=== PATIENT | female | born 1975 | race Caucasian/White ===

== ENCOUNTER → 2017-05-12 | Outpatient (CLI) | payer BC ==
[~2017-05-12] VITALS: Ht 170.2 cm; Wt 81.6 kg
[~2017-05-12] MED LIST: LEVO50TA5 PO; LIDOCAINE 2% INJ 100 MG/5 ML SDV (FOR ANES.) As Ordered ONE; NS 1,000 ML IV ONE; PROPOFOL 200 MG/20 ML VIAL As Ordered ONE
--- NOTE | 2017-05-12 10:22 | ROOR ---
Patient Name: Lashaun Charles Procedure Date: 05/12/2017 10:03 AM Date of : 1975 Age: 41 Room: [facility] Gender: Female Note Status: Finalized Procedure: Upper GI endoscopy Indications: Suspected esophageal reflux Providers: Yash Christiansen Jr, MD Referring MD: Faustino Rios MD Requesting Provider: Medicines: Propofol per Anesthesia Complications: No immediate complications. Procedure: Pre-Anesthesia Assessment: - Prior to the procedure, a History and Physical was performed, and patient medications and allergies were reviewed. The patient is competent. The risks and benefits of the procedure and the sedation options and risks were discussed with the patient. All questions were answered and informed consent was obtained. Patient identification and proposed procedure were verified by the physician and the nurse in the pre-procedure area and in the procedure room. Mental Status Examination: alert and oriented. Airway Examination: normal oropharyngeal airway and neck mobility. Respiratory Examination: clear to auscultation. CV Examination: normal. ASA Grade Assessment: II - A patient with mild systemic disease. After reviewing the risks and benefits, the patient was deemed in satisfactory condition to undergo the procedure. The anesthesia plan was to use moderate sedation / analgesia (conscious sedation). Immediately prior to administration of medications, the patient was re-assessed for adequacy to receive sedatives. The heart rate, respiratory rate, oxygen saturations, blood pressure, adequacy of pulmonary ventilation, and response to care were monitored throughout the procedure. The physical status of the patient was re-assessed after the procedure. The Endoscope was introduced through the mouth, and advanced to the second part of duodenum. The upper GI endoscopy was accomplished without difficulty. The patient tolerated the procedure well. Findings: The upper third of the esophagus, middle third of the esophagus and lower third of the esophagus were normal. LA Grade A (one or more mucosal breaks less than 5 mm, not extending between tops of 2 mucosal folds) esophagitis was found at the gastroesophageal junction. Biopsies were taken with a cold forceps for histology. The cardia, gastric fundus, gastric body, gastric antrum and pylorus were normal. Striped mildly erythematous mucosa was found in the prepyloric region of the stomach. Biopsies were taken with a cold forceps for histology. The duodenal bulb, first portion of the duodenum and second portion of the duodenum were normal. Impression: - Normal upper third of esophagus, middle third of esophagus and lower third of esophagus. - LA Grade A esophagitis. Biopsied. - Normal cardia, gastric fundus, gastric body, antrum and pylorus. - Erythematous mucosa in the prepyloric region of the stomach. Biopsied. - Normal duodenal bulb, first portion of the duodenum and second portion of the duodenum. Recommendation: - Discharge patient to home (ambulatory). - Return to my office in 3 weeks. Yash Christiansen MD Yash Christiansen Jr, MD 05/12/2017 10:22:02 AM This report has been signed electronically. Number of Addenda: 0 Note Initiated On: 05/12/2017 10:03 AM Estimated Blood Loss: Estimated blood loss: none.
--- NOTE | 2017-05-12 10:34 | ROOR ---
Patient Name: Lashaun Charles Procedure Date: 05/12/2017 10:04 AM Date of : 1975 Age: 41 Room: [facility] Gender: Female Note Status: Finalized Procedure: Colonoscopy Indications: Generalized abdominal pain, Rectal bleeding Providers: Yash Christiansen Jr, MD Referring MD: Faustino Rios MD Requesting Provider: Medicines: Propofol per Anesthesia Complications: No immediate complications. Procedure: Pre-Anesthesia Assessment: - Prior to the procedure, a History and Physical was performed, and patient medications and allergies were reviewed. The patient is competent. The risks and benefits of the procedure and the sedation options and risks were discussed with the patient. All questions were answered and informed consent was obtained. Patient identification and proposed procedure were verified by the physician and the nurse in the pre-procedure area and in the procedure room. Mental Status Examination: alert and oriented. Airway Examination: normal oropharyngeal airway and neck mobility. Respiratory Examination: clear to auscultation. CV Examination: normal. ASA Grade Assessment: II - A patient with mild systemic disease. After reviewing the risks and benefits, the patient was deemed in satisfactory condition to undergo the procedure. The anesthesia plan was to use moderate sedation / analgesia (conscious sedation). Immediately prior to administration of medications, the patient was re-assessed for adequacy to receive sedatives. The heart rate, respiratory rate, oxygen saturations, blood pressure, adequacy of pulmonary ventilation, and response to care were monitored throughout the procedure. The physical status of the patient was re-assessed after the procedure. The Colonoscope was introduced through the anus and advanced to the cecum, identified by appendiceal orifice and ileocecal valve. The patient tolerated the procedure well. The quality of the bowel preparation was adequate and good. Findings: The perianal and digital rectal examinations were normal. Pertinent negatives include normal sphincter tone, no palpable rectal lesions and no anal lesion or abnormality was detected. Non-bleeding external and internal hemorrhoids were found during endoscopy. The hemorrhoids were mild. The rectum, recto-sigmoid colon, sigmoid colon, descending colon, transverse colon, ascending colon, cecum and appendiceal orifice appeared normal. Impression: - Non-bleeding external and internal hemorrhoids. - The rectum, recto-sigmoid colon, sigmoid colon, descending colon, transverse colon, ascending colon, cecum and appendiceal orifice are normal. - No specimens collected. Recommendation: - Discharge patient to home (ambulatory). - Repeat colonoscopy for screening purposes. Yash Christiansen MD Yash Christiansen Jr, MD 05/12/2017 10:33:52 AM This report has been signed electronically. Number of Addenda: 0 Note Initiated On: 05/12/2017 10:04 AM Estimated Blood Loss: Estimated blood loss: none.
[2017-05-12 11:09] VITALS: BP 119/63
== END | disposition home or self-care (01) ==
LOC: M OPP 09:17
PROVIDERS: ATTEND Surgery
DX: K62.5 Hemorrhage of anus and rectum (principal); R10.84 Generalized abdominal pain; K64.4 Residual hemorrhoidal skin tags; K64.8 Other hemorrhoids; R10.13 Epigastric pain; R10.30 Lower abdominal pain, unspecified; R14.0 Abdominal distension (gaseous); K21.9 Gastro-esophageal reflux disease without esophagitis; K20.9 Esophagitis, unspecified; K31.89 Other diseases of stomach and duodenum; E03.9 Hypothyroidism, unspecified; Z79.899 Other long term (current) drug therapy

== ENCOUNTER → 2017-05-16 | Outpatient (CLI) | payer BC ==
[~2017-05-16] MED LIST changes: +GASTROGRAFIN SOLUTION 30ML (Q9963) As Ordered ONE; +ISOVUE-370 76% 100ML VIAL (Q9967) As Ordered ONE; -LIDOCAINE 2% INJ 100 MG/5 ML SDV (FOR ANES.) As Ordered ONE; -NS 1,000 ML IV ONE; -PROPOFOL 200 MG/20 ML VIAL As Ordered ONE
--- NOTE | 2017-05-17 03:04 | REP ---
Clinical: Lower abdominal pain. Technique: Axial contrast enhanced images from the lung bases to the pubic symphysis using oral and 100 ml Isovue 370 intravenous contrast material with precontrast images of the abdomen as well as coronal and sagittal re-formations. Findings: Lung bases are clear. Visualized heart and pericardium normal. Liver, spleen, pancreas, bilateral adrenal glands and kidneys are normal. Cholelithiasis noted without CT evidence for acute cholecystitis. The enteric system is without obstruction or acute inflammatory process. Normal terminal ileum and appendix identified in the right lower quadrant. Sigmoid diverticulosis noted without acute diverticulitis. Pelvis demonstrates normal bladder. Myomatous changes to the uterus are suggested and may warrant pelvic ultrasound follow-up. No ascites. No obvious adenopathy. Abdominal aorta and vasculature without aneurysm or dissection. Musculoskeletal structures are intact without focal osseous abnormality. 1 cm fat containing periumbilical hernia noted. Impression: 1. Cholelithiasis without CT evidence for acute cholecystitis. 2. Myomatous changes to the uterus are suggested and may warrant pelvic ultrasound follow-up. 3. 1 cm fat containing periumbilical hernia. 4. Scattered sigmoid diverticula without acute diverticulitis. Signed by Terrence Stone MD 05/17/2017 02:55 A
== END ==
LOC: M RAD 12:25
PROVIDERS: ATTEND Surgery
DX: K80.80 Other cholelithiasis without obstruction (principal); K57.30 Diverticulosis of large intestine without perforation or abscess without bleeding; R10.30 Lower abdominal pain, unspecified; K62.5 Hemorrhage of anus and rectum
CPT/HCPCS: 74178; Q9963; Q9967

== ENCOUNTER 2018-09-08 03:18 | Emergency (ER) | payer BC ==
[2018-09-08 04:10] LABS: BASO % 0.1 % (0.0-1.0); EOS # 0.1 10^3/uL (0.0-0.50); EOS % 0.7 % (0.0-3.0); HEMATOCRIT 39.4 % (36.0-47.0); HEMOGLOBIN 13.3 g/dl (12.0-15.5); IMMATURE GRANULOCYTE % 0.3 % (0-3.0); LYMPH % 14.1 % (24.0-44.0); MEAN CORPUSCULAR HEMOGLOBIN 30.8 pg (27.0-33.0); MEAN CORPUSCULAR HGB CONC 33.8 g/dl (32.0-36.5); MEAN CORPUSCULAR VOLUME 91.2 fl (80.0-96.0); MONO # 0.4 10^3/uL (0.0-0.8); MONO % 5.1 % (0.0-5.0); NEUTROPHILS # 5.8 10^3/uL (1.8-7.7); NEUTROPHILS % 79.7 % (36.0-66.0); PLATELET COUNT, AUTOMATED 199 10^3/uL (150-450); RED BLOOD COUNT 4.32 10^6/uL (4.00-5.40); RED CELL DISTRIBUTION WIDTH 11.9 % (11.5-14.5); WHITE BLOOD COUNT 7.2 10^3/uL (4.0-10.0)
[2018-09-08] MEDS: GI COCKTAIL 50ML BTL(HYOSCYAMINE/MAALOX/LIDOCAINE VISCOUS)(1:3:1) PO (04:10)
[2018-09-08 04:38] LABS: ALBUMIN 3.7 GM/DL (3.2-5.2); ALBUMIN/GLOBULIN RATIO 1.16 (1.00-1.93); ALKALINE PHOSPHATASE 61 U/L (45-117); ALT/SGPT 19 U/L (12-78); ANION GAP 8 MEQ/L (8-16); AST/SGOT 12 U/L (7-37); BILIRUBIN,DIRECT < 0.1 MG/DL (0.0-0.2); BILIRUBIN,TOTAL 0.2 MG/DL (0.2-1.0); BLOOD UREA NITROGEN 10 MG/DL (7-18); CALCIUM LEVEL 8.8 MG/DL (8.5-10.1); CARBON DIOXIDE LEVEL 24 MEQ/L (21-32); CHLORIDE LEVEL 109 MEQ/L (98-107); CREATININE FOR GFR 0.81 MG/DL (0.55-1.30); GLOMERULAR FILTRATION RATE > 60.0 (>58); GLUCOSE, FASTING 118 MG/DL (70-100); LIPASE 181 U/L (73-393); SODIUM LEVEL 141 MEQ/L (136-145); TOTAL PROTEIN 6.9 GM/DL (6.4-8.2)
[2018-09-08] MEDS: PANTOPRAZOLE 40MG INJ (PROTONIX) (C9113) IV (05:17)
[2018-09-08] MEDS: SUCRALFATE 1 GM TAB PO (05:17)
== END 2018-09-08 06:09 | disposition home or self-care (01) ==
LOC: M ED 03:18
DX: R10.13 Epigastric pain (principal); R11.0 Nausea; K27.9 Peptic ulcer, site unspecified, unspecified as acute or chronic, without hemorrhage or perforation; Z79.899 Other long term (current) drug therapy
CPT/HCPCS: C9113

== ENCOUNTER → 2018-09-21 | Outpatient (REF) | payer BC ==
[2018-09-21 14:02] LABS: ESTIMATED AVERAGE GLUCOSE 105 MG/DL (60-110); HEMOGLOBIN A1c 5.3 %
[2018-09-21 14:06] LABS: ERYTHROCYTE SEDIMENTATION RATE 6 mm/hr (0-20)
[2018-09-21 14:08] LABS: BASO % 0.7 % (0.0-1.0); EOS # 0.1 10^3/uL (0.0-0.50); EOS % 2.4 % (0.0-3.0); HEMOGLOBIN 13.7 g/dl (12.0-15.5); IMMATURE GRANULOCYTE % 0.2 % (0-3.0); LYMPH # 1.1 10^3/uL (1.5-4.5); LYMPH % 24.3 % (24.0-44.0); MEAN CORPUSCULAR HEMOGLOBIN 30.7 pg (27.0-33.0); MEAN CORPUSCULAR HGB CONC 33.4 g/dl (32.0-36.5); MEAN CORPUSCULAR VOLUME 91.9 fl (80.0-96.0); MONO # 0.4 10^3/uL (0.0-0.8); MONO % 7.8 % (0.0-5.0); NEUTROPHILS # 2.9 10^3/uL (1.8-7.7); NEUTROPHILS % 64.6 % (36.0-66.0); PLATELET COUNT, AUTOMATED 189 10^3/uL (150-450); RED BLOOD COUNT 4.46 10^6/uL (4.00-5.40); RED CELL DISTRIBUTION WIDTH 11.9 % (11.5-14.5); WHITE BLOOD COUNT 4.5 10^3/uL (4.0-10.0)
[2018-09-21 14:15] LABS: ALBUMIN 3.9 GM/DL (3.2-5.2); ALBUMIN/GLOBULIN RATIO 1.11 (1.00-1.93); ALKALINE PHOSPHATASE 65 U/L (45-117); ALT/SGPT 23 U/L (12-78); ANION GAP 8 MEQ/L (8-16); AST/SGOT 18 U/L (7-37); BILIRUBIN,TOTAL 0.4 MG/DL (0.2-1.0); BLOOD UREA NITROGEN 13 MG/DL (7-18); CALCIUM LEVEL 8.6 MG/DL (8.5-10.1); CARBON DIOXIDE LEVEL 27 MEQ/L (21-32); CHLORIDE LEVEL 105 MEQ/L (98-107); CREATININE FOR GFR 0.84 MG/DL (0.55-1.30); FOLATE 13.2 NG/ML; FREE T4 1.06 NG/DL (0.76-1.46); GLOMERULAR FILTRATION RATE > 60.0 (>58); GLUCOSE, FASTING 90 MG/DL (70-100); POTASSIUM SERUM 3.9 MEQ/L (3.5-5.1); RHEUMATOID FACTOR QUANT < 10.0 IU/ML (<15.0); SODIUM LEVEL 140 MEQ/L (136-145); TOTAL PROTEIN 7.4 GM/DL (6.4-8.2); VITAMIN B12 LEVEL 577 PG/ML
[2018-09-28 10:16] LABS: ANTINUCLEAR ANTIBODIES DIRECT Negative (Negative); VITAMIN B1 LEVEL WHOLE BLOOD 118.5 nmol/L (66.5-200.0); VITAMIN B6,PYRIDOXAL PHOSPHATE 9.6 ug/L (2.0-32.8); VITAMIN E(ALPHA TOCOPHEROL) 15.8 mg/L (7.0-25.1); VITAMIN E(GAMMA TOCOPHEROL) 1.8 mg/L (0.5-5.5)
== END ==
LOC: M LABNEURO 08:53
DX: E11.9 Type 2 diabetes mellitus without complications (principal); E07.9 Disorder of thyroid, unspecified; Z86.73 Personal history of transient ischemic attack (TIA), and cerebral infarction without residual deficits
CPT/HCPCS: 82746

== ENCOUNTER → 2019-03-08 | Outpatient (REF) | payer BC ==
[~2019-03-08] MED LIST changes: +CARA1TAB6 PO; -GASTROGRAFIN SOLUTION 30ML (Q9963) As Ordered ONE; -ISOVUE-370 76% 100ML VIAL (Q9967) As Ordered ONE; +OMEP40CA2; +RANI1TAB6 PO
[2019-03-09 15:46] LABS: AMYLASE 53 U/L (25-115); LIPASE 141 U/L (73-393)
== END ==
LOC: M LAB REF 15:26
PROVIDERS: ATTEND Family Medicine
DX: R10.13 Epigastric pain (principal)

== ENCOUNTER → 2019-09-07 | Outpatient (REF) | payer BC ==
[~2019-09-07] MED LIST changes: -OMEP40CA2; +OMEP40CA97; +RANI-356 PO; -RANI1TAB6 PO
== END ==
LOC: M LAB REF 10:51
PROVIDERS: ATTEND Nurse Practitioner Family
DX: R30.0 Dysuria (principal)

== ENCOUNTER → 2020-06-18 | Outpatient (REF) | payer BC ==
[~2020-06-18] MED LIST changes: -OMEP40CA97; +OMEP40CA97 PO; -RANI-356 PO; +RANI-397 PO; +TROS60CA2 PO
[2020-06-18 18:16] LABS: APPEARANCE, URINE CLEAR (CLEAR); BACTERIA, URINE AUTO NEGATIVE (NEGATIVE); BILIRUBIN, URINE AUTO NEGATIVE (NEGATIVE); BLOOD, URINE BLOOD 1+ (NEGATIVE); COLOR, URINE YELLOW (YELLOW); GLUCOSE, URINE (UA) AUTO NEGATIVE (NEGATIVE); KETONE, URINE AUTO NEGATIVE (NEGATIVE); LEUKOCYTE ESTERASE, URINE AUTO NEGATIVE (NEGATIVE); NITRITE, URINE AUTO NEGATIVE (NEGATIVE); PROTEIN, URINE AUTO NEGATIVE (NEGATIVE); RBC, URINE AUTO 0 /HPF (0-3); SPECIFIC GRAVITY URINE AUTO 1.011 (1.002-1.035); SQUAMOUS EPITHELIAL CELL UR AU 1 /HPF (0-6); UROBILINOGEN, URINE AUTO 0.2 mg/dL (0.0-2.0); WBC, URINE AUTO 0 /HPF (0-3)
== END ==
LOC: M LAB REF 13:23
PROVIDERS: ATTEND Obstetrics & Gynecology
DX: N39.46 Mixed incontinence (principal)

== ENCOUNTER → 2020-07-10 | Outpatient (REF) | payer BC ==
[2020-07-10 19:53] LABS: CA 125 27.4 U/ML (<30.2); CA19-9 TUMOR MARKER,CARBOHYDRA 6.8 U/ML (<35.0)
== END ==
LOC: M LAB REF 17:07
PROVIDERS: ATTEND Family Medicine
DX: D39.11 Neoplasm of uncertain behavior of right ovary (principal)

== ENCOUNTER → 2020-08-02 | Outpatient (CLI) | payer BC | LOC: M LABSMTC 09:39 | PROVIDERS: ATTEND Anesthesiology | DX: Z01.812 Encounter for preprocedural laboratory examination (principal); Z20.828 Contact with and (suspected) exposure to other viral communicable diseases | CPT/HCPCS: C9803; U0003 ==

== ENCOUNTER 2020-08-07 08:19 | Day surgery (SDC) | payer BC ==
[2020-08-07] VITALS (7 sets, daily range): BP systolic 120–138; BP diastolic 67–78
[~2020-08-07] VITALS: Ht 170.2 cm; Wt 89.8 kg
[~2020-08-07 08:19] MED LIST changes: +LR 1,000 ML IV ONE; +ceFAZolin SOD 2 GM in IV 1 EA IV ONE
[2020-08-07] MEDS ORDERED: ROCURONIUM BROMIDE 50 MG/5 ML VIAL As Ordered ONE ×2 (08:40→11:46)
[2020-08-07] MEDS ORDERED: LIDOCAINE 2% 100MG/5ML SDV (FOR ANES.) As Ordered ONE (08:40)
[2020-08-07] MEDS ORDERED: propofoL 200 MG/20 ML VIAL As Ordered ONE (08:40)
[2020-08-07] MEDS ORDERED: fentaNYL 250 MCG/5 ML INJECTION (J3010) As Ordered ONE (08:40)
[2020-08-07] MEDS ORDERED: MIDAZOLAM INJ 2MG/2ML VIAL (J2250 PER 1MG) As Ordered ONE (08:40)
[2020-08-07 09:24] LABS: HEMATOCRIT 45.4 % (36.0-47.0); HEMOGLOBIN 14.7 g/dl (12.0-15.5); MEAN CORPUSCULAR HEMOGLOBIN 29.9 pg (27.0-33.0); MEAN CORPUSCULAR HGB CONC 32.4 g/dl (32.0-36.5); MEAN CORPUSCULAR VOLUME 92.3 fl (80.0-96.0); PLATELET COUNT, AUTOMATED 215 10^3/uL (150-450); RED BLOOD COUNT 4.92 10^6/uL (4.00-5.40); WHITE BLOOD COUNT 6.5 10^3/uL (4.0-10.0)
[2020-08-07] MEDS ORDERED: SCOPOLAMINE 1MG TRANSDERMAL PATCH TOP ONE (10:00)
[2020-08-07] MEDS ORDERED: LACRILUBE (AKWA TEARS) OPHTH OINT 3.5 GM As Ordered ONE (11:13)
[2020-08-07] MEDS ORDERED: dexameTHASONE 4 MG/ML 1ML VIAL (J1100 PER 1MG) As Ordered ONE (11:39)
[2020-08-07] MEDS ORDERED: ONDANSETRON 4MG/2ML VIAL As Ordered ONE (11:39)
[2020-08-07] MEDS ORDERED: METOCLOPRAMIDE INJ 10MG/2ML VIAL (J2765 PER 1) As Ordered ONE (11:39)
[2020-08-07] MEDS ORDERED: DESFLURANE 240 ML INHALANT As Ordered ONE (11:56)
[2020-08-07] MEDS ORDERED: SUGAMMADEX SODIUM 500 MG/5 ML VIAL (BRIDION) As Ordered ONE (12:01)
[2020-08-07] MEDS ORDERED: HYDROmorphone HCL 2 MG/ML 1ML VIAL (J1170) As Ordered ONE (12:22)
[2020-08-07] MEDS ORDERED: ACETAMINOPHEN 1000MG 100ML IV BTL (OFIRMEV) (J0131 PER 10MG) As Ordered ONE (12:35)
[2020-08-07] MEDS ORDERED: MORPHINE 1MG/ML IN 0.9% NACL 100ML IV BAG As Ordered ONE (13:58)
[2020-08-07] MEDS ORDERED: MEPERIDINE INJ 25 MG/ML VIAL (J2175) IV PRN (14:00)
[2020-08-07] MEDS ORDERED: LR 1,000 ML IV SCH (14:00)
[2020-08-07] MEDS ORDERED: ONDANSETRON 4MG/2ML VIAL IV PRN (14:00)
[2020-08-07] MEDS ORDERED: METOCLOPRAMIDE INJ 10MG/2ML VIAL (J2765 PER 1) IV PRN (14:00)
[2020-08-07] MEDS: oxyCODONE 5MG TAB PO PRN ×2 (14:32→15:15)
[2020-08-07] MEDS: fentaNYL 100 MCG/2 ML INJECTION (J3010) IV PRN ×4 (14:45→15:00)
[2020-08-07] MEDS ORDERED: MORPHINE 1MG/ML IN 0.9% NACL 100ML IV BAG IV PRN (15:00)
[2020-08-07] MEDS ORDERED: NALBUPHINE HCL 10 MG/ML AMP (J2300) IV PRN (15:00)
[2020-08-07] MEDS ORDERED: diphenhydrAMINE 50MG/ML VIAL (J1200) IV PRN (15:00)
[2020-08-07] MEDS ORDERED: IBUPROFEN 600MG TAB PO PRN (15:00)
[2020-08-07] MEDS ORDERED: NS 1,000 ML IV SCH (15:00)
[2020-08-07] MEDS ORDERED: EPIDURAL/PCA KEYS XX PRN (15:00)
[2020-08-07] MEDS ORDERED: NALOXONE INJ 0.4MG/1ML VIAL (J2310 PER 1MG) IV PRN (15:00)
[2020-08-07] MEDS ORDERED: oxyCODONE 5MG TAB As Ordered ONE (15:14)
[2020-08-07 18:01] LABS: HEMATOCRIT 36.8 % (36.0-47.0)
[2020-08-07 18:05] LABS: HEMOGLOBIN 12.5 g/dl (12.0-15.5)
[2020-08-08 02:00] VITALS: BP 114/62
[2020-08-08 06:00] VITALS: BP 118/77
[2020-08-08] MEDS ORDERED: NORCO, ANEXSIA 5/325MG TABLET (HYDROcodone/ACETAMINOPHEN) PO PRN (06:00)
[2020-08-08 06:13] LABS: HEMATOCRIT 32.9 % (36.0-47.0); HEMOGLOBIN 10.7 g/dl (12.0-15.5); MEAN CORPUSCULAR HEMOGLOBIN 30.4 pg (27.0-33.0); MEAN CORPUSCULAR HGB CONC 32.5 g/dl (32.0-36.5); MEAN CORPUSCULAR VOLUME 93.5 fl (80.0-96.0); PLATELET COUNT, AUTOMATED 183 10^3/uL (150-450); RED BLOOD COUNT 3.52 10^6/uL (4.00-5.40); WHITE BLOOD COUNT 10.5 10^3/uL (4.0-10.0)
--- NOTE | 2020-08-08 07:05 | RO ---
DATE OF OPERATION: 08/07/2020 PREOPERATIVE DIAGNOSIS/INDICATION FOR SURGERY: Pain and large fibroid, primarily one dominant fibroid. PROCEDURE: * Diagnostic laparoscopy. * Open total abdominal hysterectomy with bilateral salpingo-oophorectomy. SURGEON: Kalee Butcher MD BAGGAGE CHECKER: Bhavana Roman ANESTHESIA: General endotracheal anesthesia. BRIEF DESCRIPTION OF PROCEDURE AND FINDINGS: Lashaun was brought to the operating room where sufficient general endotracheal anesthesia was induced. She was prepped, draped, and positioned in the usual sterile fashion. She had already been told in the office that her fibroids were fairly immobile and there was a higher risk of not being able to do it laparoscopically, but we felt it was worth at least looking. So, the uterine manipulator designed for the robot was placed and the Jade with the ability to back fill was placed. We then turned our attention to the umbilicus. A transverse semilunar incision was made at the umbilicus. Sharp and blunt dissection continued through the subcutaneous tissues to the level of the rectus fascia, which was transversely incised, secured with 0-Vicryl retention sutures, and the Ravindra cannula placed into the peritoneal cavity under direct visualization in open laparoscopic technique. CO2 insufflation was then begun, and after adequate CO2 insufflation, the peritoneal cavity was visualized. With adequate insufflation, we were able to visualize the peritoneum well. We put the patient in the full Trendelenburg that we would usual use for the robot and tried to manipulate the uterus to get visualization. As noted in the operative photos, she had a single dominant, more than 11 cm wide, fibroid which was firmly compressing the bladder and there was no access to the bladder. We could see a small, essentially normal sized uterus with this item coming off of the lower uterine segment, distorting the bladder anteriorly, and eliminating all access to the uterine blood supply. Without removing this fibroid, and there was of course no morcellator or such available, nor would I have wanted one, there really was no means robotically to control the blood supply at a safe distance from the bowel which was compressed up in the tiny little amount of space left from this large fibroid. Of course, there was no access to get the bladder out of the way. We did manipulate the uterus somewhat and we were able to see that there just was not access to the appropriate pedicles. It was not an issue of releasing the rounds and then having mobility from this solid, just immobile lesion. Given that there was no access to the blood supply without removal, the decision was made to go ahead and convert. Given that the fibroid was anterior and was solid and the uterus was there behind it, I felt that we could probably do an open myomectomy and then get the blood supply. So, I decided to go ahead and make a Pfannenstiel incision despite the large size of the uterus, because I felt that we could get enough control once we had the fibroid out of the way and it really was primarily the one. So, we stopped the CO2 insufflation, leveled the patient out, and made a transverse Pfannenstiel incision with sharp and blunt dissection through the subcutaneous tissues to the level of the rectus fascia, which was transversely incised. The muscle was in the midline. The peritoneum was entered with care taken to go above the bladder, which was of course pushed up out of the pelvis by this large, large fibroid. We then went ahead and packed the bowel up and used a single- toothed tenaculum to bring the fibroid up to the wound. We could not bring it out of the wound since it was larger than the wound we made, but we were able to then, under closed conditions at the wound, take a portion of that fibroid and split it so we could deliver that, and then rotate it and bring up the other portion until a myomectomy could be accomplished. We then were able to bring the uterus up and carefully clamp the broad ligaments bilaterally. We did have some lower uterine segment bleeding, but we had cut off the peritoneum and the visceral peritoneum as well so that we could displace the bladder inferiorly. Once the fibroid was off of the lower uterine segment, there was quite a bit of distortion of the peritoneum itself, but there did not appear to be bladder injury. We were able to back fill and confirm that. We went ahead and then isolated the rounds, clamped, transected, and ligated them. We isolated the infundibulopelvic ligaments, clamped, transected, and ligated them. Then, we carefully dissected along the lateral aspect of the uterus until we could clamp, transect, and ligate the uterine vasculature until the level of the cervix was reached. We then circumferentially made the colpotomy and delivered the uterus, and of course, the myomectomy had already been accomplished. In total, the weight was 820 grams. The uterus itself was only about 104 without that large, large fibroid, and of course we did not have these weights at this point. We closed the cuff and back filled the bladder again, confirmed absence of injury. We had a good urine output despite the initial blood loss. We had good hemostasis. I did have that redundant peritoneum on the left side. We went ahead and put some Gelfoam there on the left lower anterior after irrigating. Prior to getting control of that blood supply, the total blood loss for the case was about 850, but we did irrigate and have good confirmation of good hemostasis at the end. Of course, we reapproximated the muscle and peritoneal layers in the midline with just interrupted stitches of 0-Vicryl. We then closed the fascia with a running stitch of 0-Vicryl. We closed the skin at the Pfannenstiel incision with 3-0 Vicryl in a subcuticular stitch with Steri-Strips and a dry sterile dressing placed. We closed the fascia wound at the umbilicus with 0- Vicryl retention sutures and then again did a 3-0 Vicryl subcuticular stitch at the umbilicus as well with a dry sterile dressing to place there. Of course, the procedure was then ended. Jade was left in place at the end of the case. ESTIMATED BLOOD LOSS: 850. FLUID REPLACEMENT: Crystalloid. COMPLICATIONS: As noted, the patient had a decision for open, but she was consented for that pending the findings under anesthesia, so no complications. CONDITION AND DISPOSITION: Lashaun tolerated the procedure well and was recovering in the recovery room in good condition. JESSI
[2020-08-08 09:15] LABS: HEMATOCRIT 36.1 % (36.0-47.0); HEMOGLOBIN 11.9 g/dl (12.0-15.5)
[2020-08-08 10:00] VITALS: BP 107/66
[2020-08-08] MEDS ORDERED: LR 1,000 ML IV SCH (15:00)
== END 2020-08-08 11:31 | disposition home or self-care (01) ==
LOC: M SDC 08:19 → M MSPAV 15:29 → M SDC 08-08 11:31
PROVIDERS: ATTEND Obstetrics & Gynecology
DX: R10.2 Pelvic and perineal pain (principal); D25.9 Leiomyoma of uterus, unspecified; N93.9 Abnormal uterine and vaginal bleeding, unspecified; Z53.31 Laparoscopic surgical procedure converted to open procedure
CPT/HCPCS: 36415; 49320; 58150; 81025; 85014; 85018; 85027; 86850; 86900; 86901; 88307; 96361; 96374; J0131; J0690; J1100; J1170; J1200; J2250; J2405; J2765; J3010

== ENCOUNTER → 2020-09-16 | Outpatient (CLI) | payer BC ==
[~2020-09-16] MED LIST changes: -LR 1,000 ML IV ONE; -ceFAZolin SOD 2 GM in IV 1 EA IV ONE
--- NOTE | 2020-09-16 11:09 | REP ---
INDICATION: R92.8 ABN LEFT BREAST MAMMO/CK CLIP PLACEMENT. Patient is status post ultrasound-guided needle biopsy for a small hypoechoic 3 mm target in the left breast at 11 o'clock. COMPARISON: Comparison sonography July 16, 2020. Comparison mammography July 16, 2020. TECHNIQUE: Craniocaudal and true mediolateral mammographic views. FINDINGS: A needle biopsy marker clip is seen in the superior left breast just medial to the plane of the nipple consistent with the 11 o'clock position. No hematoma is seen. Marker clip is in the middle 3rd. There was no mammographic target. IMPRESSION: Marker clip is visible in position superiorly and medially on the left.. This mammogram was interpreted with the aid of an FDA-approved computer-aided detection system. RECOMMENDATION: Follow-up treatment according to needle biopsy histologic results. <Electronically signed by Cristopher Aldridge > 09/16/20 1105
[2020-09-16 12:42] VITALS: BP 130/78
--- NOTE | 2020-09-16 14:22 | REP ---
INDICATION: R92.8 ABN LEFT BREAST-US GUIDED BX. COMPARISON: None. TECHNIQUE: The procedure was performed by KAUSHIK Gilman, under the direct supervision of Dr. Aldridge. The risks and benefits of the procedure were explained to the patient and an informed consent was obtained both verbally and written. Directly prior to the start of the procedure a formal time-out was completed in the procedure room. FINDINGS: Using ultrasound guidance the left breast mass was localized. The skin was prepped and draped in a sterile fashion. Eleven mL of buffered lidocaine was used as a local anesthetic. Using ultrasound guidance a 14 gauge Bard Marquee coaxial needle biopsy system was inserted and advanced into the left breast mass. Six core biopsy specimens were obtained and sent to pathology for further analysis. A marker clip was placed at the biopsy site. The patient tolerated the procedure well and there were no immediate complications. After the appropriate amount of monitored convalescence the patient was discharged from the department. IMPRESSION: 1. Ultrasound-guided left breast biopsy with micro clip placement. <Electronically signed by Citlali Randall > 09/16/20 1331 <Electronically signed by Cristopher Aldridge > 09/16/20 [id number]
== END ==
LOC: M WHCPRO 08:42
PROVIDERS: ATTEND Surgery
DX: N60.12 Diffuse cystic mastopathy of left breast (principal)

== ENCOUNTER → 2020-10-15 | Outpatient (REF) | payer BC ==
[2020-10-15 12:59] LABS: HEPATITIS A ANTIBODY IGM NEGATIVE (NEGATIVE); HEPATITIS B CORE ANTIBODY IGM NEGATIVE (NEGATIVE); HEPATITIS B SURFACE ANTIGEN NEGATIVE (NEGATIVE); HEPATITIS C VIRUS ABY INDEX 0.2 INDEX (<0.8)
== END ==
LOC: M LAB REF 11:14
PROVIDERS: ATTEND Family Medicine
DX: R94.5 Abnormal results of liver function studies (principal)

== ENCOUNTER → 2021-02-06 | Outpatient (CLI) | payer BC ==
--- NOTE | 2021-02-06 09:41 | REP ---
INDICATION: R92.8 6 MO F/U POST BENIGN STEREO BX,ASSESS STABILITY; R92.8 6 MO F/U,POST BENIGN STEREO BX,ASSESS STABILITY. COMPARISON: Comparison mammography July 16, 2020 and September 16, 2020. Comparison sonography July 16, 2020. TECHNIQUE: Craniocaudal, mediolateral, and mediolateral oblique mammographic views of the left breast are obtained with 3D tomography. Repeat targeted left breast sonography is carried out. This mammogram was interpreted with the aid of an FDA-approved computer-aided detection system. FINDINGS: Scattered fibroglandular elements are again noted. A HydroMARK needle biopsy marker clip device is noted in place in the left breast superiorly and medially at the site where prior mammography showed a nodular manjula density. The nodular manjula density is not seen. Only the HydroMARK device density is observed. No manjula density, spiculation, or microcalcification is seen. No mammographically suspicious finding. The Volpara volumetric breast density pattern is b. Targeted ultrasound: Targeted left breast sonography is carried out. Fibroglandular background elements are seen. The in the 11 o'clock position, 4 cm from the nipple at the previous biopsy site, the HydroMARK biopsy clip device is visible as expected. Some fluid is retained in the device surround the echogenic clip as is commonly seen with HydroMARK device. No nodule is seen . The previously noted hypoechoic lesion is no longer visible. IMPRESSION: BIRADS/ACR category 2 benign left breast mammographic and sonographic findings. This patient's Tyrer-Cuzick lifetime breast cancer risk assessment score is 11.4%. RECOMMENDATION: Annual screening bilateral mammography can be resumed.. The patient letter being requested is M2. <Electronically signed by Cristopher Aldridge > 02/06/21 [id number]
== END ==
LOC: M WHC 07:50
PROVIDERS: ATTEND Surgery
DX: R92.8 Other abnormal and inconclusive findings on diagnostic imaging of breast (principal)

== ENCOUNTER → 2021-06-17 | Outpatient (CLI) | payer BC ==
[~2021-06-17] MED LIST changes: +OMEP40CA4 PO; -OMEP40CA97 PO
[2021-06-17 18:08] LABS: BASO % 0.7 % (0.0-1.0); EOS # 0.1 10^3/uL (0.0-0.5); EOS % 1.3 % (0.0-3.0); HEMATOCRIT 41.2 % (36.0-47.0); HEMOGLOBIN 13.5 g/dl (12.0-15.5); LYMPH # 1.4 10^3/uL (1.5-5.0); LYMPH % 24.8 % (24.0-44.0); MEAN CORPUSCULAR HEMOGLOBIN 30.8 pg (27.0-33.0); MEAN CORPUSCULAR HGB CONC 32.8 g/dl (32.0-36.5); MEAN CORPUSCULAR VOLUME 93.8 fl (80.0-96.0); MONO # 0.5 10^3/uL (0.0-0.8); MONO % 8.5 % (2.0-8.0); NEUTROPHILS # 3.6 10^3/uL (1.5-8.5); NEUTROPHILS % 64.2 % (36.0-66.0); PLATELET COUNT, AUTOMATED 202 10^3/uL (150-450); RED BLOOD COUNT 4.39 10^6/uL (4.00-5.40); WHITE BLOOD COUNT 5.5 10^3/uL (4.0-10.0)
[2021-06-17 18:26] LABS: ALBUMIN 4.4 GM/DL (3.2-5.2); ALT/SGPT 182 U/L (12-78); AMYLASE 50 U/L (25-115); BILIRUBIN,TOTAL 0.4 MG/DL (0.2-1.0); BLOOD UREA NITROGEN 14 MG/DL (7-18); C REACTIVE PROTEIN QUANTITATIV 0.54 MG/DL (0.00-0.30); CALCIUM LEVEL 10.1 MG/DL (8.5-10.1); CARBON DIOXIDE LEVEL 31 MEQ/L (21-32); CHLORIDE LEVEL 106 MEQ/L (98-107); CHOLESTEROL LEVEL 294 MG/DL (<200); GLOMERULAR FILTRATION RATE > 60.0 (>58); GLUCOSE, FASTING 91 MG/DL (70-100); HDL CHOLESTEROL 49 MG/DL (>40); LDL CHOLESTEROL 219 MG/DL (<100); NON-HDL-C 245 MG/DL; POTASSIUM SERUM 4.2 MEQ/L (3.5-5.1); SODIUM LEVEL 139 MEQ/L (136-145); TOTAL PROTEIN 7.9 GM/DL (6.4-8.2); TRIGLYCERIDES LEVEL 128 MG/DL (<150)
== END ==
LOC: M LAB 16:59
PROVIDERS: ATTEND Family Medicine
DX: R10.9 Unspecified abdominal pain (principal)

== ENCOUNTER → 2021-06-19 | Outpatient (CLI) | payer BC ==
[~2021-06-19] MED LIST changes: +GASTROGRAFIN SOLUTION 30ML (Q9963) As Ordered ONE; +ISOVUE-370 76% 100ML VIAL As Ordered ONE
--- NOTE | 2021-06-19 12:40 | REP ---
INDICATION: ABD PAIN, INCREASED LFT. COMPARISON: Comparison CT study is from May 16, 2017. TECHNIQUE: 100 mL of Isovue 370 is administered intravenously and helical scanning is acquired. 3 mm axial images re-formatted. Coronal and sagittal MPR images are generated. Oral contrast was also administered. FINDINGS: Preliminary digital non linear editor radiograph shows a large calcified gallstone in the right upper quadrant of the abdomen. The bowel gas pattern is unremarkable. Axial images at lung window settings demonstrate that the lung bases are clear. There is no evidence of pleural effusion or upper abdominal ascites. There is an accessory splenule in the left upper quadrant unchanged. There is profound diffuse fatty infiltration of the liver visible today. Subjectively, the liver is enlarged. Vertical span in the midclavicular line is borderline at 16.6 cm. There is a hypervascular nodule in the left lobe of the liver measuring 14 by 18 mm in size. This is visible in retrospect and is felt to be unchanged when compared with the 2017 prior study and is consistent with a small benign hemangioma. No other focal liver lesion is seen. No biliary ductal dilation is observed. There is a calcified 2.6 cm gallstone in the gallbladder. The gallbladder is slightly collapsed otherwise. No pancreatic abnormality is observed. Normal adrenal glands are seen. The kidneys enhance symmetrically and are morphologically intact bilaterally. No retroperitoneal mass or adenopathy is seen. Small and large intestinal bowel loops are normal in the abdomen and pelvis. A normal appendix is seen in the right lower quadrant. In the interval since the last CT study, the uterus has been surgically removed. Urinary bladder is unremarkable. No adnexal mass or pelvic adenopathy is seen. No abdominal wall defect or bony destructive lesion. IMPRESSION: Marked diffuse fatty infiltration of the liver mild hepatomegaly. Cholelithiasis. Small stable hypervascular liver nodule consistent with hemangioma. <Electronically signed by Cristopher Aldridge > 06/19/21 [id number]
== END ==
LOC: M RAD 10:45
PROVIDERS: ATTEND Family Medicine
DX: R10.9 Unspecified abdominal pain (principal)

== ENCOUNTER → 2021-08-21 | Outpatient (REF) | payer BC ==
[~2021-08-21] MED LIST changes: -GASTROGRAFIN SOLUTION 30ML (Q9963) As Ordered ONE; -ISOVUE-370 76% 100ML VIAL As Ordered ONE
== END ==
LOC: M LAB REF 13:48
PROVIDERS: ATTEND Family Medicine
DX: R74.01 Elevation of levels of liver transaminase levels (principal)

== ENCOUNTER → 2021-08-26 | Outpatient (CLI) | payer BC ==
--- NOTE | 2021-08-26 09:19 | REPMRS ---
Patient History The patient states she had a clinical breast exam in June 2021. Patient is postmenopausal. Family history of breast cancer at age 57 in maternal grandmother. Benign US guided breast biopsy. of the left breast, September 16, 2020. Taking estrogen for 5 months. Tomosynthesis is performed. Volpara breast density is a. [facility] lifetime risk of breast cancer 11.4%. Patient states no breast complaints today. Patient has signed MRS History Sheet. Digital Woman Screen Mammo: August 26, 2021 - Exam #: [id number] Bilateral CC and MLO view(s) were taken. Technologist: Monica Williamson, Technologist Prior study comparison: February 06, 2021, left breast diagnostic unilateral mammo performed at [facility]. September 16, 2020, left breast diagnostic unilateral mammo performed at [facility]. FINDINGS: There are scattered fibroglandular densities. There is a fairly symmetric fibroglandular pattern in both breasts. There has been no interval development of masses, areas of architectural distortion or clusters of microcalcifications typical of malignancy. A smoothly marginated right retroareolar nodule remains stable. A biopsy clip is seen in the upper inner left breast from a prior negative biopsy. Assessment: BI-RADS/ACR category 2 mammogram. Benign Findings. Recommendation Routine screening mammogram of both breasts in 1 year (for women over age 40). This mammogram was interpreted with the aid of an FDA-approved computer-aided dectection system. Electronically Signed By: Jayson Jung MD 08/26/21 0919
== END ==
LOC: M WHC 07:00
PROVIDERS: ATTEND Obstetrics & Gynecology
DX: Z12.31 Encounter for screening mammogram for malignant neoplasm of breast (principal)

== ENCOUNTER → 2021-12-16 | Outpatient (CLI) | payer BC, OTHER ==
[~2021-12-16] MED LIST changes: +PARO12.56 PO
== END ==
LOC: M LABSMTC 10:54
PROVIDERS: ATTEND Anesthesiology
DX: Z01.818 Encounter for other preprocedural examination (principal); Z11.52 Encounter for screening for COVID-19

== ENCOUNTER → 2022-01-02 | Outpatient (CLI) | payer OTHER | LOC: M LABSMTC 10:37 | PROVIDERS: ATTEND Anesthesiology | DX: Z01.818 Encounter for other preprocedural examination (principal); Z11.52 Encounter for screening for COVID-19 ==

== ENCOUNTER 2022-01-07 11:38 | Day surgery (SDC) | payer OTHER ==
[~2022-01-07] VITALS: Ht 170.2 cm; Wt 93.4 kg
[~2022-01-07 11:38] MED LIST changes: +NS 1,000 ML IV ONE
[2022-01-07] MEDS ORDERED: LIDOCAINE 2% 100MG/5ML SDV (FOR ANES.) As Ordered ONE (12:08)
[2022-01-07] MEDS ORDERED: propofoL 200 MG/20 ML VIAL As Ordered ONE (12:08)
[2022-01-07] MEDS ORDERED: fentaNYL 100 MCG/2 ML INJECTION As Ordered ONE (12:09)
[2022-01-07 13:55] VITALS: BP 123/71
== END 2022-01-07 14:00 | disposition home or self-care (01) ==
LOC: M OPP 11:38
PROVIDERS: ATTEND Internal Medicine Gastroenterology
DX: K31.7 Polyp of stomach and duodenum (principal); R12 Heartburn; E03.9 Hypothyroidism, unspecified; Z79.890 Hormone replacement therapy
CPT/HCPCS: 43239; 88305; J3010

== ENCOUNTER → 2022-02-26 | Outpatient (CLI) | payer OTHER ==
[~2022-02-26] MED LIST changes: -NS 1,000 ML IV ONE
== END ==
LOC: M RAD 07:31
PROVIDERS: ATTEND Internal Medicine Gastroenterology
DX: R93.5 Abnormal findings on diagnostic imaging of other abdominal regions, including retroperitoneum (principal)
CPT/HCPCS: 78227; A9537

== ENCOUNTER → 2022-04-22 | Outpatient (CLI) | payer OTHER | LOC: M LABSMTC 09:22 | PROVIDERS: ATTEND Anesthesiology | DX: Z01.812 Encounter for preprocedural laboratory examination (principal); Z11.52 Encounter for screening for COVID-19 ==

== ENCOUNTER 2022-04-27 08:37 | Day surgery (SDC) | payer OTHER ==
[~2022-04-27] VITALS: Ht 170.2 cm; Wt 90.7 kg
[~2022-04-27 08:37] MED LIST changes: +ceFAZolin SOD 2 GM in IV 1 EA IV ONE
[2022-04-27] MEDS ORDERED: LR 1,000 ML IV SCH ×2 (08:50→11:40)
[2022-04-27] MEDS ORDERED: BUPIVACAINE/EPIN 0.25% 30 ML VIAL As Ordered ONE (10:13)
[2022-04-27] MEDS ORDERED: fentaNYL 100 MCG/2 ML INJECTION As Ordered ONE ×2 (11:01→11:13)
[2022-04-27] MEDS ORDERED: dexameTHASONE 4 MG/ML 1ML VIAL (J1100 PER 1MG) As Ordered ONE (11:01)
[2022-04-27] MEDS ORDERED: MIDAZOLAM INJ 2MG/2ML VIAL (J2250 PER 1MG) As Ordered ONE (11:01)
[2022-04-27] MEDS ORDERED: ACETAMINOPHEN 1000MG 100ML IV BTL (OFIRMEV) (J0131 PER 10MG) As Ordered ONE (11:04)
[2022-04-27] MEDS ORDERED: ROCURONIUM BROMIDE 50 MG/5 ML VIAL As Ordered ONE (11:10)
[2022-04-27] MEDS ORDERED: propofoL 200 MG/20 ML VIAL As Ordered ONE (11:10)
[2022-04-27] MEDS ORDERED: SUGAMMADEX SODIUM 500 MG/5 ML VIAL (BRIDION) As Ordered ONE (11:14)
[2022-04-27] MEDS ORDERED: ONDANSETRON 4MG 2ML VIAL As Ordered ONE (11:14)
[2022-04-27] MEDS ORDERED: KETOROLAC 60MG 2ML VIAL As Ordered ONE (11:35)
[2022-04-27] MEDS ORDERED: fentaNYL 100 MCG/2 ML INJECTION IV PRN (11:40)
[2022-04-27] MEDS ORDERED: oxyCODONE 5MG TAB PO PRN (11:40)
[2022-04-27] MEDS ORDERED: MORPHINE 2 MG/ML 1ML VIAL IV PRN (11:40)
[2022-04-27] MEDS ORDERED: NORCO, ANEXSIA 5/325MG TABLET (HYDROcodone/ACETAMINOPHEN) PO PRN ×2 (13:20)
[2022-04-27] MEDS ORDERED: NS 1,000 ML IV SCH (13:20)
[2022-04-27 13:40] VITALS: BP 118/56
== END 2022-04-27 13:50 | disposition home or self-care (01) ==
LOC: M SDC 08:37
PROVIDERS: ATTEND Surgery
DX: K80.10 Calculus of gallbladder with chronic cholecystitis without obstruction (principal); E03.9 Hypothyroidism, unspecified; K76.0 Fatty (change of) liver, not elsewhere classified; K21.9 Gastro-esophageal reflux disease without esophagitis; Z87.891 Personal history of nicotine dependence; Z79.899 Other long term (current) drug therapy
CPT/HCPCS: 47562; 88304; J0131; J0690; J1100; J1885; J2250; J2405; J3010

== ENCOUNTER → 2022-09-01 | Outpatient (CLI) | payer OTHER ==
[~2022-09-01] MED LIST changes: -ceFAZolin SOD 2 GM in IV 1 EA IV ONE
== END ==
LOC: M WHC 07:09
PROVIDERS: ATTEND Nurse Practitioner Family
DX: Z12.31 Encounter for screening mammogram for malignant neoplasm of breast (principal)

== ENCOUNTER → 2022-12-23 | Outpatient (REF) | payer OTHER | LOC: M LAB REF 12:14 | PROVIDERS: ATTEND Family Medicine | DX: E03.9 Hypothyroidism, unspecified (principal) ==

== ENCOUNTER → 2024-12-21 | Outpatient (CLI) | payer OTHER | LOC: M WHC 13:36 | PROVIDERS: ATTEND Obstetrics & Gynecology | DX: Z12.31 Encounter for screening mammogram for malignant neoplasm of breast (principal) ==

== ENCOUNTER → 2024-12-21 | Outpatient (REF) | payer OTHER | LOC: M SFHCWAGY 17:57 | PROVIDERS: ATTEND Obstetrics & Gynecology | DX: Z12.72 Encounter for screening for malignant neoplasm of vagina (principal) ==

== ENCOUNTER → 2024-12-21 | Outpatient (CLI) | payer OTHER | LOC: M WHC 13:43 | PROVIDERS: ATTEND Obstetrics & Gynecology | DX: Z12.31 Encounter for screening mammogram for malignant neoplasm of breast (principal); R92.313 Mammographic fatty tissue density, bilateral breasts; Z53.9 Procedure and treatment not carried out, unspecified reason ==